=== PATIENT | male | born 1970 | race Caucasian/White ===

== ENCOUNTER 2017-06-05 10:27 | Emergency (ER) | payer OTHER ==
[2017-06-05] MEDS ORDERED: NS 0.9% 1000 ML* 1,000 ML IV ONE ×2 (10:57→14:29)
[2017-06-05] MEDS ORDERED: LORazepam INJ* 2 MG/ML 1 ML VIAL IV ONE (10:57)
[2017-06-05] MEDS ORDERED: Meclizine TAB* 12.5 MG PO ONE (10:57)
[2017-06-05] MEDS ORDERED: Ondansetron INJ* 2 MG/ML VIAL IV ONE ×2 (10:59→14:29)
[2017-06-05] MEDS ORDERED: LORazepam INJ* 2 MG/ML 1 ML VIAL IV PUSH PRN (10:59)
--- NOTE | 2017-06-05 11:52 | RAD ---
HISTORY: Dizziness COMPARISONS: November 13, 2008 TECHNIQUE: Multiple contiguous axial CT scans were obtained of the head without intravenous contrast. FINDINGS: HEMORRHAGE/INFARCT: There is no hemorrhage or acute infarct. MASSES/SHIFT: There is no mass or shift. EXTRA-AXIAL SPACES: There are no extra-axial fluid collections. SULCI AND VENTRICLES: The sulci and ventricles are normal in size and position for the patient's stated age. CEREBRUM: There are no focal parenchymal abnormalities. BRAINSTEM: There are no focal parenchymal abnormalities. CEREBELLUM: There are no focal parenchymal abnormalities. VESSELS: The vessels are grossly normal. PARANASAL SINUSES: The paranasal sinuses are clear. ORBITS: The orbits are unremarkable. BONES AND SOFT TISSUE: No bone or soft tissue abnormalities are noted. OTHER: None IMPRESSION: NO ACUTE INTRACRANIAL PATHOLOGY.
--- NOTE | 2017-06-05 11:53 | RAD ---
HISTORY: Dizziness COMPARISONS: June 09, 2008 VIEWS: 1: frontal portable view of the chest at 11:12 AM FINDINGS: LINES AND TUBES: None. CARDIOMEDIASTINAL SILHOUETTE: The cardiomediastinal silhouette is normal for portable technique. PLEURA: The costophrenic angles are sharp. No pleural abnormalities are noted. LUNG PARENCHYMA: The lungs are clear. ABDOMEN: The upper abdomen is clear. There is no subphrenic gas. BONES AND SOFT TISSUES: No bone or soft tissue abnormalities are noted. IMPRESSION: NO ACTIVE CARDIOPULMONARY DISEASE.
[2017-06-05 12:14] LABS: Hematocrit 48 % (42-52); Hemoglobin 17.5 g/dl (14.0-18.0); Mean Corpuscular HGB Conc 36 g/dl (31-36); Mean Corpuscular Hemoglobin 31 pg (27-31); Mean Corpuscular Volume 87 fL (80-94); Mean Platelet Volume 8 um3 (7.4-10.4); Platelet Count 237 10^3/ul (150-450); Red Blood Count 5.56 10^6/ul (4.0-5.4); Red Cell Distribution Width 13 % (10.5-15); White Blood Count 11.6 10^3/ul (3.5-10.8)
[2017-06-05 12:24] LABS: EGFR Non-African American 84.3 (>60)
[2017-06-05 12:43] LABS: ABS Basophils 0 10^3/ul (0-0.2); ABS Eosinophils 0 10^3/ul (0-0.6); ABS Monocytes 0.6 10^3/ul (0-0.8); ABS Neutrophils 9.9 10^3/ul (1.5-7.7); ABS Nucleated RBC 0.1 10^3/ul; Eosinophil % 0.3 % (0-6); Lymphocyte % 8.9 % (25-47)
[2017-06-05 14:21] LABS: Urine Appearance Clear; Urine Blood Negative (Negative); Urine Color Yellow; Urine Ketones Trace (Negative); Urine Protein Negative (Negative); Urine Specific Gravity 1.016 (1.010-1.030); Urine Urobilinogen Negative (Negative)
[2017-06-05] MEDS ORDERED: Diazepam SYRINGE* 5 MG/ML 2 ML SYRINGE (10 MG total) IV ONE (14:29)
[2017-06-05] MEDS ORDERED: Diazepam TAB(*) 2 MG PO ONE (14:44)
[2017-06-05] MEDS ORDERED: Diazepam TAB(*) 5 MG PO ONE (15:28)
[2017-06-05 15:36] VITALS: BP 131/76
--- NOTE | 2017-06-06 16:46 | ED ---
Sunil Barragan Angela, scribed for Chris Pulido MD on 06/05/17 at 1050 . Dizziness - HPI Summary HPI Summary: This pt is a 47 y/o male presenting to [facility] c/o dizziness x2 days. Pt notes he was at work 2 days ago and had dizziness. Pt then went home after work and vomited. He notes he felt better yesterday and went to work but felt worse throughout the day. Pt describes room spinning dizziness with associated nausea and vomiting. His dizziness is alleviated with closing his eyes. Denies weakness in UE or LE, recent upper respiratory infection symptoms, sinus pain. Pt also notes he has a slight headache. Denies chest pain, SOB. Allergic to Dilaudid and Amoxicillin. - History Of Current Complaint Chief Complaint: EDDizziness Stated Complaint: DIZZINESS Time Seen by Provider: 06/05/17 10:34 Hx Obtained From: Patient Onset/Duration: Still Present Timing: Days - 2 Severity Currently: Severe Character: Room Spinning, Dizzy Aggravating Factor(s): Nothing Alleviating Factor(s): Closing Eyes Associated Signs And Symptoms: Positive: Nausea, Vomiting, Other: - headache. Negative: Chest Pain, SOB, Fever - Allergies/Home Medications Allergies/Adverse Reactions: Allergies Allergy/AdvReac Type Severity Reaction Status Date / Time amoxicillin Allergy Unknown Verified 06/05/17 11:05 Reaction Details hydromorphone Allergy See Comment Verified 06/05/17 11:06 Home Medications: Home Medications Amphetamine/Dextroamph ER(NF) [Adderal XR (NF)] 20 mg PO BID 06/05/17 [History Confirmed 06/05/17] Carisoprodol TAB* [Soma TAB*] 350 mg PO TID PRN 06/05/17 [History Confirmed ] FLUoxetine CAP* [PROzac CAP*] 80 mg PO DAILY 06/05/17 [History Confirmed ] [place] Carbonate ER TAB* 450 mg PO TID 06/05/17 [History Confirmed 06/05/17] Pregabalin CAP(*) [Lyrica CAP(*)] 150 mg PO QID 06/05/17 [History Confirmed ] PMH/Surg Hx/FS Hx/Imm Hx Endocrine/Hematology History: Denies: Hx Diabetes, Hx Thyroid Disease Cardiovascular History: Reports: Hx Hypertension - ON DAILY MEDS Denies: Hx Pacemaker/ICD, Other Cardiovascular Problems/Disorders Respiratory History: Reports: Hx Sleep Apnea - Hx OF, STATES NO CURRENT Sx Denies: Hx Asthma, Hx Chronic Obstructive Pulmonary Disease (COPD), Other Respiratory Problems/Disorders GI History: Denies: Hx Ulcer, Other GI Disorders History: Denies: Hx Renal Disease Musculoskeletal History: Reports: Hx Back Problems Denies: Hx Rheumatoid Arthritis, Hx Osteoporosis Comment Only: Other Musculoskeletal History - LEFT SHOULDER, PAIN SINCE 2013 Sensory History: Reports: Hx Contacts or Glasses Denies: Hx Hearing Aid Opthamlomology History: Reports: Hx Contacts or Glasses Neurological History: Reports: Other Neuro Impairments/Disorders Psychiatric History: Reports: Hx Anxiety - ON MEDS, Hx Depression, Hx Bipolar Disorder Denies: Hx Panic Disorder - Surgical History Surgery Procedure, Year, and Place: tubes in ears as kid-. 1985 RIGHT knee scoped. 2001, 2005, 2007 back surgeries -. 2013 back fusion Hx Anesthesia Reactions: No - STATES HAD "BAD" EXPERIENCE WITH DILAUDID 2013 Infectious Disease History: No Infectious Disease History: Denies: Hx Clostridium Difficile, Hx Hepatitis, Hx Human Immunodeficiency Virus (HIV), Hx of Known/Suspected MRSA, Hx Shingles, Hx Tuberculosis, Hx Known/ Suspected VRE, Hx Known/Suspected VRSA, History Other Infectious Disease, Traveled Outside the [place] in Last 30 Days - Family History Known Family History: Positive: None - Social History Alcohol Use: None Substance Use Type: Reports: None Smoking Status (MU): Former Smoker Type: Cigarettes Amount Used/How Often: 5 CIGS PER DAY 1980s Have You Smoked in the Last Year: No Review of Systems Negative: Fever, Chills Negative: Other - upper respiratory infection symptoms Negative: Chest Pain Negative: Shortness Of Breath Positive: Vomiting, Nausea Neurological: Other - dizziness Positive: Headache, Weakness All Other Systems Reviewed And Are Negative: Yes Physical Exam - Summary Physical Exam Summary: VITAL SIGNS: Reviewed. GENERAL: Patient is a well-developed and nourished male who is lying comfortable in the stretcher. Patient is not in any acute respiratory distress. HEAD AND FACE: No signs of trauma. No ecchymosis, hematomas or skull depressions. No sinus tenderness. EYES: PERRLA, EOMI x 2, No injected conjunctiva, no nystagmus. EARS: Hearing grossly intact. Ear canals and tympanic membranes are within normal limits. MOUTH: Oropharynx within normal limits. Dry oral mucosa. NECK: Supple, trachea is midline, no adenopathy, no JVD, no carotid bruit, no c- spine tenderness, neck with full ROM. CHEST: Symmetric, no tenderness at palpation LUNGS: Clear to auscultation bilaterally. No wheezing or crackles. CVS: Regular rate and rhythm, S1 and S2 present, no murmurs or gallops appreciated. ABDOMEN: Soft, non-tender. No signs of distention. No rebound no guarding, and no masses palpated. Bowel sounds are normal. EXTREMITIES: FROM in all major joints, no edema, no cyanosis or clubbing. NEURO: Alert and oriented x 3. No acute neurological deficits. Speech is normal and follows commands. SKIN: Dry and warm GCS: 15 Triage Information Reviewed: Yes Vital Signs On Initial Exam: Initial Vitals Temp Pulse Resp BP Pulse Ox 97.0 F 45 13 144/71 98 06/05/17 10:34 06/05/17 10:34 06/05/17 10:34 06/05/17 10:34 06/05/17 10:34 Vital Signs Reviewed: Yes - Jackie Coma Scale Best Eye Response: 4 - Spontaneous Best Motor Response: 6 - Obeys Commands Best Verbal Response: 5 - Oriented Coma Scale Total: 15 Diagnostics - Vital Signs Vital Signs Temp Pulse Resp BP Pulse Ox 06/05/17 10:34 97.0 F 45 13 144/71 98 - Laboratory Lab Results: Lab Results 06/05/17 06/05/17 06/05/17 Range/Units 11:48 11:48 11:48 WBC 11.6 H (3.5-10.8) 10^3/ul RBC 5.56 H (4.0-5.4) 10^6/ul Hgb 17.5 (14.0-18.0) g/dl Hct 48 (42-52) % MCV 87 (80-94) fL MCH 31 (27-31) pg MCHC 36 (31-36) g/dl RDW 13 (10.5-15) % Plt Count 237 (150-450) 10^3/ul MPV 8 (7.4-10.4) um3 Neut % (Auto) 85.5 H (38-83) % Lymph % (Auto) 8.9 L (25-47) % [place] % (Auto) 4.9 (1-9) % Eos % (Auto) 0.3 (0-6) % Baso % (Auto) 0.4 (0-2) % Absolute Neuts (auto) 9.9 H (1.5-7.7) 10^3/ul Absolute Lymphs (auto) 1.0 (1.0-4.8) 10^3/ul Absolute Monos (auto) 0.6 (0-0.8) 10^3/ul Absolute Eos (auto) 0 (0-0.6) 10^3/ul Absolute Basos (auto) 0 (0-0.2) 10^3/ul Absolute Nucleated RBC 0.1 10^3/ul Nucleated RBC % 1.0 Sodium 134 (133-145) mmol/L Potassium 3.7 (3.5-5.0) mmol/L Chloride 99 L (101-111) mmol/L Carbon Dioxide 25 (22-32) mmol/L Anion Gap 10 (2-11) mmol/L BUN 19 (6-24) mg/dL Creatinine 0.95 (0.67-1.17) mg/dL Est GFR ( Amer) 108.4 (>60) Est GFR (Non-Af Amer) 84.3 (>60) BUN/Creatinine Ratio 20.0 (8-20) Glucose 129 H (70-100) mg/dL Lactic Acid 2.6 H* (0.5-2.0) mmol/L Calcium 10.5 H (8.6-10.3) mg/dL Magnesium 2.4 (1.9-2.7) mg/dL Total Bilirubin 1.10 H (0.2-1.0) mg/dL AST 27 (13-39) U/L ALT 41 (7-52) U/L Alkaline Phosphatase 58 (34-104) U/L Total Creatine Kinase 182 (10-223) U/L Troponin I 0.00 (<0.04) ng/mL C-Reactive Protein 1.42 (< 5.00) mg/L Total Protein 7.8 (6.4-8.9) g/dL Albumin 4.9 (3.2-5.2) g/dL Globulin 2.9 (2-4) g/dL Albumin/Globulin Ratio 1.7 (1-3) TSH 1.52 (0.34-5.60) mcIU/mL Urine Color Urine Appearance Urine pH (5-9) Ur Specific Index (1.010-1.030) Urine Protein (Negative) Urine Ketones (Negative) Urine Blood (Negative) Urine Nitrate (Negative) Urine Bilirubin (Negative) Urine Urobilinogen (Negative) Ur Leukocyte Esterase (Negative) Urine Glucose (Negative) 06/05/17 Range/Units 13:24 WBC (3.5-10.8) 10^3/ul RBC (4.0-5.4) 10^6/ul Hgb (14.0-18.0) g/dl Hct (42-52) % MCV (80-94) fL MCH (27-31) pg MCHC (31-36) g/dl RDW (10.5-15) % Plt Count (150-450) 10^3/ul MPV (7.4-10.4) um3 Neut % (Auto) (38-83) % Lymph % (Auto) (25-47) % [place] % (Auto) (1-9) % Eos % (Auto) (0-6) % Baso % (Auto) (0-2) % Absolute Neuts (auto) (1.5-7.7) 10^3/ul Absolute Lymphs (auto) (1.0-4.8) 10^3/ul Absolute Monos (auto) (0-0.8) 10^3/ul Absolute Eos (auto) (0-0.6) 10^3/ul Absolute Basos (auto) (0-0.2) 10^3/ul Absolute Nucleated RBC 10^3/ul Nucleated RBC % Sodium (133-145) mmol/L Potassium (3.5-5.0) mmol/L Chloride (101-111) mmol/L Carbon Dioxide (22-32) mmol/L Anion Gap (2-11) mmol/L BUN (6-24) mg/dL Creatinine (0.67-1.17) mg/dL Est GFR ( Amer) (>60) Est GFR (Non-Af Amer) (>60) BUN/Creatinine Ratio (8-20) Glucose (70-100) mg/dL Lactic Acid (0.5-2.0) mmol/L Calcium (8.6-10.3) mg/dL Magnesium (1.9-2.7) mg/dL Total Bilirubin (0.2-1.0) mg/dL AST (13-39) U/L ALT (7-52) U/L Alkaline Phosphatase (34-104) U/L Total Creatine Kinase (10-223) U/L Troponin I (<0.04) ng/mL C-Reactive Protein (< 5.00) mg/L Total Protein (6.4-8.9) g/dL Albumin (3.2-5.2) g/dL Globulin (2-4) g/dL Albumin/Globulin Ratio (1-3) TSH (0.34-5.60) mcIU/mL Urine Color Yellow Urine Appearance Clear Urine pH 7.0 (5-9) Ur Specific Index 1.016 (1.010-1.030) Urine Protein Negative (Negative) Urine Ketones Trace H (Negative) Urine Blood Negative (Negative) Urine Nitrate Negative (Negative) Urine Bilirubin Negative (Negative) Urine Urobilinogen Negative (Negative) Ur Leukocyte Esterase Negative (Negative) Urine Glucose Negative (Negative) Result Diagrams: 06/05/17 11:48 06/05/17 11:48 Lab Statement: Any lab studies that have been ordered have been reviewed, and results considered in the medical decision making process. - Radiology Chest XR Xray Interpretation: No Acute Changes - IMPRESSION: No active cardiopulmonary disease. Dr. Pulido has reviewed this radiology report. Radiology Interpretation Completed By: Radiologist - CT Brain CT CT Interpretation: No Acute Changes - IMPRESSION: No acute intracranial pathology. Dr. Pulido has reviewed this radiology report. CT Interpretation Completed By: Radiologist - EKG 10:29 Cardiac Rate: Bradycardia EKG Rhythm: Sinus Bradycardia - at 46 bpm EKG Interpretation: No ST elevation. Normal axis. Dizzy Course/Dx - Course Assessment/Plan: This pt is a 47 y/o male presenting to [facility] c/o dizziness x2 days. Pt notes he was at work 2 days ago and had dizziness. Pt then went home after work and vomited. He notes he felt better yesterday and went to work but felt worse throughout the day. Pt describes room spinning dizziness with associated nausea and vomiting. His dizziness is alleviated with closing his eyes. Denies weakness in UE or LE, recent upper respiratory infection symptoms, sinus pain. Pt also notes he has a slight headache. Denies chest pain, SOB. Allergic to Dilaudid and Amoxicillin. Test results without any significant abnormalities except WBC of 11.6, glucose of 129, lactic acid of 2.6. Urinalysis is negative for a UTI. In the ED course the pt was given IV fluids, meclizine, Ativan for the vertigo. The pts symptoms improved after these medications, however before discharge the pt had more dizziness. I did a repeat neurological exam and since the pt is neurologically intact I have no suspicion for a posterior infarct. The pt was given more fluids, antiemetics and valium. After these medications the symptoms improved. Pt is ambulating in the ED without any dizziness. Pt was given instructions to return to the ED if he develops weakness in UE or LE, nystagmus, intractable nausea or vomiting. He understands and agrees. Pt is hemodynamically stable, alert and oriented x3. - Diagnoses Differential Diagnosis/HQI/PQRI: Labyrinthitis, Meniere's Disease Provider Diagnoses: Vertigo Discharge - Discharge Plan Condition: Stable Disposition: HOME Prescriptions: Diazepam TAB(*) [Valium TAB(*)] 2 mg PO TID PRN #15 tab MDD 6 mg PRN Reason: Dizziness Meclizine TAB* [Antivert 12.5 TAB*] 25 mg PO TID PRN #30 tab PRN Reason: Vertigo Ondansetron TAB* [Zofran 4 MG Tab*] 4 mg PO Q6H PRN #12 tab PRN Reason: Vomiting Patient Education Materials: Vertigo (ED) Referrals: Angel Buckner MD [Primary Care Provider] - 3 Days Additional Instructions: Please follow up with your primary care provider. RETURN TO THE ED FOR ANY WORSENING SYMPTOMS. The documentation as recorded by the Sunil braswell Angela accurately reflects the service I personally performed and the decisions made by , Chris Pulido MD.
== END 2017-06-05 16:15 | disposition home or self-care (01) ==
LOC: ED 10:27
DX: R42 Dizziness and giddiness (principal); I10 Essential (primary) hypertension; F32.9 Major depressive disorder, single episode, unspecified; F41.9 Anxiety disorder, unspecified; Z87.891 Personal history of nicotine dependence
CPT/HCPCS: 36415; 70450; 71045; 80053; 81003; 82550; 83605; 83735; 84443; 84484; 85025; 86140; 93005; 96360; 96374; 96375; 96376; 99283; A9270-GY; J2060; J2405

== ENCOUNTER 2019-06-03 10:25 | Emergency (ER) | payer OTHER ==
[2019-06-03 10:32] VITALS: BP 133/86
--- NOTE | 2019-06-03 10:47 | UC ---
Upper Extremity HPI - HPI Summary HPI Summary: CHIEF COMPLAINT: right forearm pain HPI: This is a healthy 49 y/o with right forearm pain from a fall one week ago. Description of Pain: localized; area of swelling and ecchymosis. VITAL SIGNS REVIEWED. Within normal limits unless noted here. NURSES NOTE REVIEWED. " " - History of Current Complaint Chief Complaint: UCUpperExtremity Stated Complaint: R ARM INJURY Time Seen by Provider: 06/03/19 10:40 Hx Obtained From: Patient ?: Yes Onset/Duration: Sudden Onset Pain Intensity: 4 - Allergies/Home Medications Allergies/Adverse Reactions: Allergies Allergy/AdvReac Type Severity Reaction Status Date / Time amoxicillin Allergy Unknown Verified 06/03/19 10:32 Reaction Details hydromorphone Allergy See Comment Verified 06/03/19 10:32 PMH/Surg Hx/FS Hx/Imm Hx - Surgical History Surgical History: Yes Surgery Procedure, Year, and Place: tubes in ears as kid-. 1985 RIGHT knee scoped. 2001, 2005, 2007 back surgeries -. 2013 back fusion - Family History Known Family History: Positive: None - Social History Alcohol Use: None Substance Use Type: None Smoking Status (MU): Former Smoker Type: Cigarettes Amount Used/How Often: 5 CIGS PER DAY 1980s Have You Smoked in the Last Year: No When Did the Patient Quit Smoking/Using Tobacco: 1989 Physical Exam Vital Signs: Initial Vital Signs Temp 98 F 06/03/19 10:30 Pulse 42 06/03/19 10:30 Resp 16 06/03/19 10:30 BP 133/86 06/03/19 10:30 Pulse Ox 100 06/03/19 10:30 Discharge ED - Discharge Plan Referrals: Angel Buckner MD [Primary Care Provider] -
--- NOTE | 2019-06-03 11:12 | UC ---
Upper Extremity HPI - HPI Summary HPI Summary: 49 yo male presents with RIGHT forearm injury. He tells me that 1 week ago he fell going down his basement steps and his right forearm slid against the steps going down. Since that time has had pain, swelling, and bruising to right forearm. He is most concerned because the bruising is not improving. He denies numbness or tingling. He is right handed. Of note today he is bradycardic. Looking back at his records, he had an EKG in that showed his HR was 46. Pt states his HR is usually around 50bpm. HE is not having any dizziness, SOB, chest pain, or palpitations. - History of Current Complaint Chief Complaint: UCUpperExtremity Stated Complaint: R ARM INJURY Time Seen by Provider: 06/03/19 10:40 Hx Obtained From: Patient ?: Yes Onset/Duration: Sudden Onset Severity Initially: Mild Severity Currently: Mild Pain Intensity: 4 Pain Scale Used: 0-10 Numeric - Allergies/Home Medications Allergies/Adverse Reactions: Allergies Allergy/AdvReac Type Severity Reaction Status Date / Time amoxicillin Allergy Unknown Verified 06/03/19 10:32 Reaction Details hydromorphone Allergy See Comment Verified 06/03/19 10:32 PMH/Surg Hx/FS Hx/Imm Hx Psychological History: Anxiety, Depression - Surgical History Surgical History: Yes Surgery Procedure, Year, and Place: tubes in ears as kid-. 1985 RIGHT knee scoped. 2001, 2005, 2007 back surgeries -. 2013 back fusion - Family History Known Family History: Positive: None - Social History Lives: With Family Alcohol Use: None Substance Use Type: None Smoking Status (MU): Former Smoker Type: Cigarettes Amount Used/How Often: 5 CIGS PER DAY 1980s Have You Smoked in the Last Year: No When Did the Patient Quit Smoking/Using Tobacco: 1989 Review of Systems All Other Systems Reviewed And Are Negative: No Constitutional: Positive: Negative Skin: Positive: Negative Respiratory: Positive: Negative Cardiovascular: Positive: Negative Neurovascular: Positive: Negative Musculoskeletal: Positive: Other: - Right arm injury Neurological/Mental Status: Positive: Negative Psychological: Positive: Negative Physical Exam - Summary Physical Exam Summary: GENERAL: NAD. WDWN. No pain distress. SKIN: Superficial abrasion with scab to ulnar forearm. No erythema or drainage. CHEST: No accessory muscle use. Breathing comfortably and in no distress. CV: Pulses intact radial and ulnar. Cap refill <2seconds MSK: RIGHT FOREARM: ulnar aspect with moderate edema and green/yellow/purple ecchymosis. Mild TTP. Soft without warmth. RIGHT wrist and elbow FROM. Strength 5/5 including plasma processing technician strength. No snuffbox tenderness. NEURO: Alert. Sensations intact hand and all fingers. PSYCH: Age appropriate behavior. Triage Information Reviewed: Yes Vital Signs: Initial Vital Signs Temp 98 F 06/03/19 10:30 Pulse 42 06/03/19 10:30 Resp 16 06/03/19 10:30 BP 133/86 06/03/19 10:30 Pulse Ox 100 06/03/19 10:30 Vital Signs Reviewed: Yes Diagnostics - Radiology Forearm XR Radiology Interpretation Completed By: Radiologist Summary of Radiographic Findings: IMPRESSION: No fracture of the right forearm is noted. - EKG Summary of EKG Findings: Sinus bradycardia 40bpm. No ischemia. Read by Dr. Noriega compared to 05/2017 EKG. Upper Extremity Course/Dx - Course Course Of Treatment: EKG obtained due to asymptomatic bradycardia and as above. Compared to 2018 EKG. XR as above. Suspect contusin/hematoma from fall. No signs of compartment syndrome today. Advised to rest, ice, and elevate arm - may take a few weeks for ecchymosis to clear. - Differential Dx/Diagnosis Provider Diagnosis: Contusion, forearm, Bradycardia Discharge ED - Sign-Out/Discharge Documenting (check all that apply): Patient Departure All imaging exams completed and their final reports reviewed: Yes - Discharge Plan Condition: Stable Disposition: HOME Patient Education Materials: Contusion in Adults (ED) Referrals: Angel Buckner MD [Primary Care Provider] - Additional Instructions: If you develop a fever, shortness of breath, chest pain, new or worsening symptoms - please call your PCP or go to the ED immediately. Rest, Ice, and elevate your arm. It may take a few weeks for the bruising to subside. Your Heart Rate is low, but it appears you have always had a heart rate that is low. Your EKG did not show any other abnormalities. - Billing Disposition and Condition Condition: STABLE Disposition: Home
== END 2019-06-03 11:51 | disposition home or self-care (01) ==
LOC: UCEAST 10:25
DX: S50.11XA Contusion of right forearm, initial encounter (principal); R00.1 Bradycardia, unspecified; Z88.0 Allergy status to penicillin; Z88.5 Allergy status to narcotic agent; Z87.891 Personal history of nicotine dependence; W10.9XXA Fall (on) (from) unspecified stairs and steps, initial encounter; Y92.9 Unspecified place or not applicable
CPT/HCPCS: 93005; 99211; G0463